=== PATIENT | female | born 1995 | race Caucasian/White ===

== ENCOUNTER 2021-12-22 06:33 | Inpatient (IN) | payer BC ==
[2021-12-22] VITALS (40 sets, daily range): BP systolic 105–144; BP diastolic 52–99; PULSE 77–98; TEMP 97.6–98.9
[~2021-12-22] VITALS: Ht 157.5 cm; Wt 72.6 kg
--- NOTE | 2021-12-22 06:40 | NUR ---
0640 PT AMBULATORY TO UNIT WITH SUPPORT PERSON, ANTOINETTE. PT STATES HER WATER BROKE THIS MORNING AT 0505. PT REPORTS NO CTX, POSITIVE MOVEMENT, AND CONTINUOUS LEAKING OF FLUID. AMNIOSURE DONE AT THIS TIME AND WAS POSITIVE FOR AMNIOTIC FLUID. FLUID ON PAD CLEAR. SVE /-2. UPDATED PT ON PLAN OF CARE. CONSENT FORMS SIGNED. EDUCATION PACKET AND MENU PROVIDED.
[2021-12-22 07:50] LABS: BASO % 0.3 % (0.0-2.0); EOS # 0.2 K/mm3 (0.0-0.7); EOS % 1.3 % (0.0-4.0); GRAN # 7.9 K/mm3 (1.4-6.5); HEMOGLOBIN 12.3 g/dl (12.5-16.0); LYMPH # 2.4 K/mm3 (1.2-3.4); LYMPH % 21.4 % (20.0-51.0); MEAN CELL VOLUME 89 fl (80.0-100.0); MEAN CORPUSCULAR HEMOGLOBIN 31 pg (27-31); MEAN CORPUSCULAR HGB CONC 34 g/dl (33.0-37.0); MEAN PLATELET VOLUME 12.4 fl (7.4-10.4); MONO # 0.7 K/mm3 (0.1-0.6); MONO % 6.1 % (1.7-9.3); PLATELET COUNT 183 K/mm3 (130-400); RED BLOOD COUNT 4.03 M/mm3 (4.10-5.30); REDCELL DISTRIBUTION WIDTH-CV 13.6 % (11.5-14.5)
--- NOTE | 2021-12-22 10:30 | NUR ---
1030 ELVIN STEVE IN ROOM FOR EPIDURAL PLACEMENT. LR BOLUS INFUSING PER PROTOCOL. BLOOD PRESSURE CUFF AND PULSE OX ON. PT SITTING UP ON EDGE OF BED, DIFFICULTY TRACING EFM DUE TO MATERNAL POSITIONING. EFM TRACING CAT 1 BEFORE SITTING UP. 1041 TEST DOSE ADMINISTERED AT THIS TIME PER ELVIN STEVE. PT TOLERATED WELL. VITAL SIGNS STABLE. EFM TRACING CAT 1. PT RETURNED TO BED AFTER TAPE APPLIED. WILL CONTINUE TO MONITOR.
--- NOTE | 2021-12-22 14:00 | NUR ---
1400 SVE AT THIS TIME, PT COMPLETE/[address] STOKES CALLED AT THIS TIME. ORDERS TO START PUSHING. 1408 STARTED PUSHING WITH PT. GOOD MATERNAL EFFORT. EFM TRACING CAT 1. [address] STOKES IN FOR DELIVERY. ROOM SET UP FOR DELIVERY. APPROPRIATE STAFF NOTIFIED. [address] STOKES DUE TO BRADYCARDIA. OF VIABLE FEMALE INFANT PER DR. STOKES. NCX1 NOTED. PLACED ON MOTHERS CHEST AND CARE ASSUMED BY FELISA HERNÁNDEZ RN. [address] STOKES. PITOCIN BOLUS INFUSING PER PROTOCOL. FUNDUS FIRM AND AT THE UMBILICUS. BLEEDING SMALL. VITAL SIGNS STABLE. ROOM PUT BACK TOGETHER AT THIS TIME. PT COMFORTABLE. WILL CONTINUE TO MONITOR.
[2021-12-22] MEDS ORDERED: PRENATAL TABLET PO (16:05)
--- NOTE | 2021-12-22 18:00 | NUR ---
1800 PT ABLE TO HOLD BOTH LEGS UP FOR 5 SEC EACH. TRANSFERRED TO BATHROOM IN WHEELCHAIR. PT VOIDED 100MLS, WAS CLEANED UP, GOWN AND PAD CHANGED, AND WAS TRANSPORTED TO ROOM IN WHEELCHAIR. WILL CONTINUE TO MONITOR.
[2021-12-23 03:00] VITALS: BP 134/90; PULSE 88; TEMP 98.8
[2021-12-23 07:42] VITALS: BP 132/84; PULSE 84; TEMP 97.3
--- NOTE | 2021-12-23 09:21 | NUR ---
Initial visit; Patient thanked [facility]ures Lab Technician for offering congratulations and God's blessings for the of their son. Dentures Lab Technician thanked patient for choosing [facility].
[2021-12-23 13:30] VITALS: BP 125/77; PULSE 76; TEMP 98.3
[2021-12-23 17:02] VITALS: BP 128/68; PULSE 88; TEMP 98.3
[2021-12-23 19:35] VITALS: BP 123/86; PULSE 89; TEMP 98
[2021-12-24 07:26] VITALS: BP 142/93; PULSE 79; TEMP 98
[2021-12-24] MEDS ORDERED: IBU800 M1 PO (08:56)
--- NOTE | 2021-12-24 12:59 | NUR ---
PATIENT PROVIDED WITH DISCHARGE INSTRUCTIONS. QUESTIONS ANSWERED.
--- NOTE | 2021-12-24 13:45 | NUR ---
PATIENT DISCHARGED. PATIENT AMBULATORY OFF UNIT ACCOMPANIED BY SPOUSE AND PATIENT'S MOTHER. PATIENT ALSO ACCOMPANIED BY THIS RN.
== END 2021-12-24 13:45 | disposition home or self-care (01) | DRG 807 ==
LOC: LDRO 06:33 → LDR 07:00 → OB 07:00
PROVIDERS: ADMIT Student in an Organized Health Care Education/Training Program
PROC: 10E0XZZ Delivery of Products of Conception, External Approach (ICD-10-PCS; principal; 2021-12-22)
PROC: 0KQM0ZZ Repair Perineum Muscle, Open Approach (ICD-10-PCS; 2021-12-22)
PROC: 0W8NXZZ Division of Female Perineum, External Approach (ICD-10-PCS; 2021-12-22)
PROC: 3E033VJ Introduction of Other Hormone into Peripheral Vein, Percutaneous Approach (ICD-10-PCS; 2021-12-22)
DX: O99.824 Streptococcus B carrier state complicating childbirth (principal); Z37.0 Single live birth; Z3A.39 39 weeks gestation of pregnancy; O76 Abnormality in fetal heart rate and rhythm complicating labor and delivery; O70.1 Second degree perineal laceration during delivery; O69.81X0 Labor and delivery complicated by cord around neck, without compression, not applicable or unspecified
CPT/HCPCS: J2540; J2590; J7120